=== PATIENT | female | born 1980 | race Two or more races ===

== ENCOUNTER 2025-01-31 12:14 | Emergency (ER) | payer MEDICAID, SELFPAY ==
[2025-01-31 12:15] VITALS: BMI 31.7
[2025-01-31 13:00] VITALS: BP 150/100; BP 151/106; PULSE 95; RESP 18; TEMP 36.7; O2SAT 98
--- NOTE | 2025-01-31 13:23 | XR_ITS ---
Examination: CT abdomen and pelvis without contrast. Coronal 3-D reconstructions. Sagittal 2-D reconstructions. Date and time of exam:January 31, 2025 1455 hours COMPARISON: May 20, 2022 INDICATIONS: Onset left-sided flank pain beginning 4 days ago CTDI: vol (mGy): 9.43 DLP: (mGycm): 579 Technique: Axial images of the abdomen have been obtained, 3 mm slice thickness Intravenous contrast material has not been administered. Low dose protocols were performed. One or more of the following dose reduction techniques were used; automated exposure control, adjustment of the mA and/or KV according to patient size, use of iterative reconstruction technique. Findings: Diffuse fatty infiltration throughout the liver Hepatomegaly 19 cm No splenic pancreatic or adrenal mass No renal or ureteral calculi, no hydronephrosis Aorta normal size Normal appendix No bowel obstruction No diverticulitis Minimal thickening of urinary bladder wall No pelvic mass Moderate osteopenia IMPRESSION: Moderate hepatomegaly, fatty liver No renal or ureteral calculi, no hydronephrosis Normal appendix No bowel obstruction
--- NOTE | 2025-01-31 13:23 | PD.EDRME ---
Rapid Medical Screening Exam RME Arrival date/time: 01/31/25 12:14 This is a 44-year-old female presents to the emergency department complaints of left flank pain radiating to frontal lower abdominal pain I have greeted and performed a focused initial assessment of this patient. Initial appropriate labs ordered at this time. A comprehensive ED assessment and evaluation of the patient and analysis of all test and completion of medical decision making process will be conducted by additional ED provider. Chief Complaint: Back Pain/Injury Time Seen by Provider: 01/31/25 12:39 Vital signs: Vital Signs Temperature 98.0 F 01/31/25 13:00 Pulse Rate 95 01/31/25 13:00 Respiratory Rate 18 01/31/25 13:00 Blood Pressure 150/100 H 01/31/25 13:00 Pulse Oximetry (%) 98 01/31/25 13:00 Oxygen Delivery Method Room Air 01/31/25 13:00
[2025-01-31 13:38] LABS: Basophils % (Auto) 1 % (0-2.5); Eosinophils # (Auto) 0.1 Thou/mm3 (0.0-0.5); Eosinophils % (Auto) 1 % (0-10); Hematocrit 39.4 % (36.0-46.0); Immature Granulocytes % (Auto) 0 % (0-0); Immature Granulocytes Auto 0.02 Thou/mm3 (0.00-0.00); Lymphocytes # (Auto) 2.8 Thou/mm3 (1.0-4.8); Lymphocytes % (Auto) 34 % (10-50); Mean Corpuscular Volume 76 fL (80-100); Monocytes # (Auto) 0.4 Thou/mm3 (0.0-0.8); Monocytes % (Auto) 5 % (0-12); Neutrophils # (Auto) 4.8 Thou/mm3 (1.8-7.7); Neutrophils % (Auto) 59 % (37-80); Nucleated Red Blood Cell % 0 /100 WBC (0); Platelet Count 288 Thou/mm3 (140-440); RDW Standard Deviation 38.2 fL (36.4-46.3); Red Blood Count 5.21 Miln/mm3 (4.00-5.20); White Blood Count 8.1 Thou/mm3 (3.6-11.0)
[2025-01-31 13:56] LABS: Alanine Aminotransferase 26 U/L (10-49); Albumin, Serum 4.9 gm/dL (3.5-5.0); Albumin/Globulin Ratio 1.8 (1.2-2.2); Alkaline Phosphatase 60 U/L (46-116); Anion Gap 8 (7-16); Aspartate Amino Transferase 13 U/L (0-34); BUN/Creatinine Ratio 14 Ratio (12-20); Bilirubin,Total 0.6 mg/dL (0.3-1.2); Blood Urea Nitrogen 13 mg/dL (9-23); Calcium 10.3 mg/dL (8.3-10.6); Calcium (Corrected) 10.3 mg/dL (8.5-10.1); Carbon Dioxide 29.8 mMol/L (20.0-31.0); Chloride 101 mMol/L (98-107); Creatinine (Component) 0.9 mg/dL (0.6-1.3); Estimated Creatinine Clearance 83.6 mL/min (>60); Globulin 2.7 gm/dL (2.3-3.5); Glucose 87 mg/dL (74-106); Lipase 34 U/L (12-53); Osmolality,Calculated 276 (275-295); Potassium 3.6 mMol/L (3.4-5.1); Sodium 139 mMol/L (136-145); Total Protein 7.6 gm/dL (5.7-8.2); eGFR > 60 See Note
[2025-01-31 14:04] LABS: Collection Type, Urine Clean Catch
[2025-01-31 14:11] LABS: Bilirubin,Urine Negative (Negative); Blood,Urine 1+ (Negative); Clarity,Urine Clear (Clear/Hazy); Color,Urine Lt-Yellow (Lt Yel-Yel); Glucose, Urine Negative (Negative); Ketones,Urine Negative (Negative); Leukocyte Esterase,Urine Negative (Negative); Nitrite,Urine Negative (Negative); PH,Urine 5.5 (5.0-7.0); Protein,Urine Negative (Neg - Trace); RBC,Urine 2 /hpf (0-3); Squamous Epithelial Cell,Urine 4 /hpf (0-5); Urobilinogen,Urine Negative mg/dL (0.0-1.0); WBC,Urine 2 /hpf (0-5)
--- NOTE | 2025-01-31 18:37 | PD.EDBACK ---
ED Back Injury Pain RME/HPI General Chief Complaint: Back Pain/Injury Stated Complaint: LEFT FLANK PAIN X4 DAYS Time Seen by Provider: 01/31/25 12:39 Arrival date/time: 01/31/25 12:14 RME / HPI RME / HPI Narrative: 44-year-old female patient with no significant medical history, came in for evaluation regarding left lumbar pain. Onset of symptoms for the last 4 days as worsening left lumbar pain, described as dull ache, severity moderate radiating to the left lower abdomen. Patient denies any vomiting denies any fever denies any dysuria hematuria or frequency. Denies any diarrhea or constipation last bowel movement today. No medication was taken prior to arrival. Related Data Home Medications ?Medication ?Instructions ?Recorded ?Confirmed hydrochlorothiazide 25 mg tablet 50 mg PO QAM #0 tabs 07/27/16 05/18/22 sertraline 50 mg tablet (Zoloft) 50 mg PO QDAY 11/10/18 05/18/22 Previous Rx's ?Medication ?Instructions ?Recorded azithromycin 250 mg tablet See Rx Instructions PO .COMPLEX #6 08/27/19 (Zithromax) tabs nitrofurantoin 100 mg PO BID #20 caps 06/26/21 monohydrate/macrocrystals 100 mg capsule (Macrobid) dextromethorphan-guaifenesin 10 10 ml PO Q8H PRN cough #500 mL 05/18/22 mg-100 mg/5 mL oral liquid cephalexin 500 mg capsule 500 mg PO QID #12 caps 05/20/22 cyclobenzaprine 10 mg tablet 10 mg PO TID PRN muscle spasm #30 01/31/25 tabs ketorolac 10 mg tablet 10 mg PO TID PRN pain #20 tabs 01/31/25 Allergies Allergy/AdvReac Type Severity Reaction Status Date / Time Penicillins Allergy Severe Swelling Verified 01/31/25 12:16 of Lip/Tongue/Throat Review of Systems Review of Systems Narrative Review of Systems: Review of system reviewed and within normal limits except mentioned in HPI ED Exam Narrative Physical exam: VITAL SIGNS: Reviewed. GENERAL APPEARANCE: Alert and interactive, follows commands, no acute distress, HEAD AND FACE: Non-traumatic. ENT: PERRL, pink conjunctivitis, eyelid no trauma, Mucous membrane moist. NECK: Supple, nontender, no nuchal rigidity. CHEST: No tenderness, no crepitus, no paradoxical movement, no retractions. LUNGS: Clear, well ventilated, symmetric, no rales, no wheezing, no ronchi, no stridor, good breath sounds bilaterally. HEART: Regular rate, regular rhythm, no murmur, no gallops. ABDOMEN: Soft, positive bowel sounds, nondistended, no guarding, nontender, no rebound, no masses, RECTAL: Deferred. GENITAL: Deferred. NEUROLOGICAL: Gross motor function intact sensory function intact, Appropriate for age. MUSCULOSKELETAL: Left lower lumbar tenderness no masses palpated no rash no redness, full range of motion. EXTREMITIES: Nontender, full range of motion. SKIN: Color pink, dry, no rash, no lacerations, no abrasions, no contusions. LYMPHATICS: Deferred. Course Quality Measures none Orders Category Date Time Status CT abdomen pelvis wo con Stat Exams 01/31/25 13:23 Completed CBC Stat Lab 01/31/25 13:24 Completed Comprehensive Metabolic Panel Stat Lab 01/31/25 13:24 Completed Lipase Stat Lab 01/31/25 13:24 Completed Urinalysis Stat Lab 01/31/25 13:39 Completed Ketorolac Inj [Toradol Inj] Med 01/31/25 18:37 Discontinued 30 mg IM X1 ONE Ondansetron Odt [Zofran Odt] Med 01/31/25 18:44 Once 4 mg PO X1 ONE Vital Signs Vital signs: Vital Signs Temperature 98.0 F 01/31/25 13:00 Pulse Rate 95 01/31/25 13:00 Respiratory Rate 18 01/31/25 13:00 Blood Pressure 150/100 H 01/31/25 13:00 Pulse Oximetry (%) 98 01/31/25 13:00 Oxygen Delivery Method Room Air 01/31/25 13:00 Back Pain / Injury MDM Narrative MDM Narrative:: 44-year-old female patient with no significant medical history, came in for evaluation regarding left lumbar pain. Onset of symptoms for the last 4 days as worsening left lumbar pain, described as dull ache, severity moderate radiating to the left lower abdomen. Patient denies any vomiting denies any fever denies any dysuria hematuria or frequency. Denies any diarrhea or constipation last bowel movement today. No medication was taken prior to arrival. Patient's workup today all came back unremarkable urinalysis no UTI no hematuria. LFTs are normal CT scan of the abdomen pelvis showed Moderate hepatomegaly, fatty liver No renal or ureteral calculi, no hydronephrosis Normal appendix No bowel obstruction Results discussed with the patient, patient was also given a copy of her CT scan. Patient was given Toradol IM with significant oral pain. Patient was advised to closely follow-up with PCP for repeat or return to emergency room for evaluation.For Worsening of symptoms. Patient data External records reviewed:: None Clinical information provided by:: patient Social determinants that could affect healthcare access:: none Patient has the following chronic illnesses:: None How is presenting disease/condition affected by chronic disease/condition?: uneffected by Evaluation data The following diagnostics were reviewed and interpreted by me:: lab results and radiology exam(s) Lab and/or radiology exams considered but not ordered:: None Interpretation Summary: See results in MDM Medications / Prescriptions Medications or Prescriptions considered but not ordered:: None Medication administrations:: Medication Administration History Ondansetron HCl (Ondansetron Odt 4 Mg Tabrap) 4 mg PO X1 ONE; Protocol Stop: 01/31/25 18:45 Discontinued Medications Ketorolac Tromethamine (Ketorolac Inj 60 Mg/2 Ml Vial) 30 mg IM X1 ONE Stop: 01/31/25 18:38 Toradol IM Consultations Consultation(s) initiated? (list below): No Diagnosis Differential diagnosis back pain/injury: lumbar radiculopathy, sciatica, pyelonephritis and other Most likely diagnosis given after review of the tests above:: Acute lumbar pain Admission Indicated Admission indicated?: not indicated Explain why admission is indicated or not indicated:: Stable for discharge Admission Request Was there a request for admission?: No Disposition Plan Disposition Plan: Discharge Discharge Attestation Discharge Attestation: The patient and all family members were given an opportunity to ask questions and understood the discharge instructions. Discharge instructions specifically effects, indications for sooner follow up or return to the emergency department, and the expected course of current diagnosis. Patient condition: Stable Discharge Plan Plan Patient Disposition: HOME (Self Care) Disposition Comment: stable Prescriptions/Referrals Prescriptions/Med Rec: New ketorolac 10 mg tablet 10 mg PO TID PRN (Reason: pain) Qty: 20 0RF Rx Instructions: maximum total duration of 5 days from all oral, intranasal, or parenteral formulations cyclobenzaprine 10 mg tablet 10 mg PO TID PRN (Reason: muscle spasm) Qty: 30 0RF No Action hydrochlorothiazide 25 MG tablet 50 mg PO QAM Qty: 0 azithromycin [Zithromax] 250 mg tablet See Rx Instructions PO .COMPLEX Qty: 6 0RF Rx Instructions: take 2 tablets (500 mg) today (day 1), then 1 tablet (250 mg) for 4 days (days 2-5) PO sertraline [Zoloft] 50 mg Tablet 50 mg PO QDAY nitrofurantoin monohyd/m-cryst [Macrobid] 100 mg capsule 100 mg PO BID Qty: 20 0RF Rx Instructions: must administer with a meal/food dextromethorphan-guaifenesin 10-100 mg/5 mL liquid 10 ml PO Q8H PRN (Reason: cough) Qty: 500 0RF cephalexin 500 mg capsule 500 mg PO QID Qty: 12 0RF Referrals: Laquita Ying FNP-C [Primary Care Provider] - In 1 week Problem List Clinical Impression: Acute low back pain Patient/Caregiver Discharge Instructions Discharge Activity: activity as tolerated Education Materials: Back Safety: Sitting Additional Instructions: Thank you for the opportunity for serving you today. You are stable for discharged . You are advised to: Follow-up with your PCP in 1 to 2 days Return to ED for worsening of symptoms Increase oral fluids Take medication as prescribed Print Language: French Stand Alone Forms: Myra Award Info., Patient Portal Info Letter PA/DIANA Supervising Physician WHIT/DIANA Supervising Physician: MD Columba
--- NOTE | 2025-01-31 18:50 | PC.NURSE ---
PT CALLED FROM ED LOBBY AND OUTSIDE OF LOBBY, NO ANSWER AT THIS TIME
[2025-01-31] MEDS: KETOROLAC INJ 60 MG/2 ML VIAL 30 MG IM (19:00)
== END 2025-01-31 19:15 | disposition home or self-care (01) ==
PROVIDERS: Nurse Practitioner Primary Care; Emergency Provider Emergency Medicine; PCP Nurse Practitioner Family
DX: M54.50 Low back pain, unspecified (principal); K76.0 Fatty (change of) liver, not elsewhere classified
CPT/HCPCS: 36415; 74176; 80053; 81001; 83690; 85025; 96372; 99284; J1885